=== PATIENT | male | born 1965 | race Caucasian/White ===

== ENCOUNTER 2022-12-21 18:11 | Emergency (ER) | payer BC, MEDICAID, OTHER ==
[~2022-12-21] VITALS: Ht 198.1 cm; Wt 114.8 kg
[2022-12-21 18:24] VITALS: BP 154/84
[2022-12-21 19:29] LABS: CLARITY,URINE CLEAR (Clear); COLOR,URINE YELLOW (Yellow); GLUCOSE, URINE 100 mg/dl (Neg); KETONES,URINE NEGATIVE (Neg); LEUKOCYTE ESTERASE ,URINE NEGATIVE (Neg); NITRITES, URINE NEGATIVE (Neg); OCCULT BLOOD,URINE NEGATIVE (Neg); PROTEIN,URINE NEGATIVE (Neg); UROBILINOGEN,URINE 0.2 E.U/dL (0.2-1.0)
[2022-12-21 19:34] LABS: UA COLLECTION TYPE CLN CATCH MIDSTREAM
[2022-12-21] MEDS ORDERED: acetaminophen 325mg tablet PO ONE (22:20)
[2022-12-21] MEDS ORDERED: ketorolac trometh inj. 60 MG/2 ML VIAL IM ONE (22:20)
[2022-12-21] MEDS ORDERED: HYDROcodone/acetaminophen 10/325mg tab PO ONE (22:25)
[2022-12-21] MEDS ORDERED: orphenadrine citrate 60mg/2ml inj. IM ONE (22:25)
[2022-12-21] MEDS ORDERED: ondansetron 4mg rapidly disintigrating tab PO ONE (22:25)
[2022-12-21] MEDS ORDERED: cyclobenzaprine 10mg tablet PO ONE (22:30)
[2022-12-21 22:38] LABS: BASOPHILS # (AUTO) 0.1 X10'3 (0-0.2); BASOPHILS % (AUTO) 1.3 % (0-1); EOSINOPHILS # (AUTO) 0.5 X10'3 (0-0.9); EOSINOPHILS % (AUTO) 4.8 % (0-6); HEMATOCRIT 44.5 % (42.0-52.0); HEMOGLOBIN 15.6 g/dl (14.0-17.9); LYMPHOCYTES # (AUTO) 2.5 X10'3 (1.1-4.8); LYMPHOCYTES % (AUTO) 24.1 % (21-51); MEAN CORPUSCULAR HEMOGLOBIN 31.4 PG (27.0-31.0); MEAN CORPUSCULAR VOLUME 89.7 FL (78-98); MEAN PLATELET VOLUME 7.6 FL (7.4-10.4); MONOCYTES # (AUTO) 0.8 X10'3 (0-0.9); MONOCYTES % (AUTO) 7.5 % (2-12); NEUTROPHILS # (AUTO) 6.5 X10'3 (1.8-7.7); NEUTROPHILS % (AUTO) 62.3 % (42-75); PLATELET COUNT 254 X10'3 (140-440); RED BLOOD COUNT 4.96 X10'6 (4.70-6.10); RED CELL DISTRIBUTION WIDTH 13.2 % (11.5-14.5); WHITE BLOOD COUNT 10.4 X10'3 (4.5-11.0)
[2022-12-21 22:48] LABS: ALANINE AMINOTRANSFERASE 35 U/L (12-78); ALBUMIN 4.1 G/DL (3.4-5.0); ALBUMIN/GLOBULIN RATIO 1.2 (1.1-1.5); ALKALINE PHOSPHATASE 100 IU/L (46-116); ANION GAP 10 (8-16); ASPARTATE AMINO TRANSFERASE 16 U/L (10-37); BILIRUBIN,TOTAL 0.4 MG/DL (0.1-1.0); BLOOD UREA NITROGEN 14 MG/DL (7-18); BUN/CREATININE RATIO 15.2 (10.0-20.0); CALCIUM 9.5 MG/DL (8.5-10.1); CHLORIDE 104 MMOL/L (99-107); CREATININE 0.92 MG/DL (0.60-1.10); GLUCOSE 185 MG/DL (70-104); POTASSIUM 4.2 MMOL/L (3.5-5.1); SODIUM 138 MMOL/L (135-145); TOTAL CARBON DIOXIDE 24.5 MMOL/L (24-32); TOTAL PROTEIN 7.6 G/DL (6.4-8.2); eGFR 85 ML/MIN
[2022-12-21] MEDS ORDERED: HYDR-3965 PO (23:40)
[2022-12-21] MEDS ORDERED: CYCL-1 PO (23:40)
[2022-12-22] MEDS ORDERED: CYCL-1 PO ×2 (11:39→11:40)
[2022-12-22] MEDS ORDERED: HYDR-3965 PO ×3 (11:39→11:56)
== END 2022-12-21 23:47 | disposition home or self-care (01) ==
LOC: ER 18:12
DX: M54.59 Other low back pain (principal); G89.29 Other chronic pain; Z79.899 Other long term (current) drug therapy; Z79.1 Long term (current) use of non-steroidal anti-inflammatories (NSAID)
CPT/HCPCS: 36415; 80053; 81003; 85025; 96372; 99284; J1885

== ENCOUNTER 2025-05-18 09:50 | Emergency (ER) | payer BC ==
[~2025-05-18] VITALS: Ht 198.1 cm; Wt 123.1 kg
[~2025-05-18 09:50] MED LIST: CYCL-1 PO
[2025-05-18 10:07] VITALS: BP 137/85; PULSE 81; RESP 16; O2SAT 98
[2025-05-18] MEDS: LIDOcaine 1% W/epiNEPHrine 1:100,000 20ml vial IJ ONE (10:36)
--- NOTE | 2025-05-18 10:36 | Physician Documentation ---
History of Present Illness ~ Chief Complaint: Wound Stated Complaint: "PELVIC SKIN INFECTION" Time Seen by MD: 10:20 OK to notify your PCP?: Yes Primary Medical Doctor: OMEGA Source: patient Mode of Arrival: POV Exam Limitations: no limitations HPI 59-year-old male with diabetes who is here due to pain full red swollen area on his lower abdomen. He states he has been on antibiotics now for three days prescribed by his primary care provider Dr. Sheldon. He states the redness and area that has swollen has gotten larger in size. He also reports it has gotten more painful despite being on antibiotics. No fever, chills, drainage from area. States he has never had anything like this before. Tetanus within 5 years?: Yes Medication Reconciliation Allergies: Coded Allergies: No Known Allergies (Unverified , 12/21/22) Scheduled Cyclobenzaprine* (Cyclobenzaprine*), 1 TAB PO HS Past Medical History Past Medical History: Diabetes, Chronic Back Pain Past Surgical History: orthopedic surgeries Alcohol Use: None Drug Use: none Review of Systems All Other Systems at this time: Reviewed and Negative Physical Exam Vital Signs: Temperature: 97.6, Source: Oral, Heart Rate: 81, Respiratory Rate: 16, BP: 137/85, Pulse Oximetry: 98, Weight: 123.100 Oxygen Flow Rate: 0 Physical Exam General Appearance: Alert, WD/WN. NAD. HEENT: NCAT, PERRL, EOMI. Neck: Supple, trachea midline. Cardiovascular: RRR. No m/r/g. Lungs: Breathing unlabored Extremities: Normal inspection. No edema. Skin: Warm/dry, normal color. At lower abdomen there is an area of erythema that is indurated with ttp measuring 5 cm in diameter. In the center of the area of erythema and induration there is area of fluctuance measuring about a 1cm. No drainage from area. Neurological: Alert and oriented x4, normal gait. Psychiatric: Affect congruent with mood. Procedures I & D Procedure : Site: Abdomen Anesthesia: Lidocaine w/ Epi Volume Anesthetic (mls): 6 Blade Size: 11 Incision: pus drained, blood drained Tolerated Procedure Well?: yes, no complications Progress Results/Orders Results/Orders Orders - KATHY DORAN Cult (Aer) Routine C&S+Gram St (05/18/25 10:29) Lido 1% W/Epi 1:100,000 Vial (05/18/25 10:30) Vital Signs 05/18/25 10:07 Temp 97.6 Pulse 81 Resp 16 B/P (MAP) 137/85 Pulse Ox 98 O2 Flow Rate 0 Medical Decision Making Differential Dx:Considerations: Include: Abscess, Cellulitis, Dressing change, Healing wound Departure Time of Disposition: 10:34 Disposition: 01 HOME / SELF CARE / HOMELESS Impression: Primary Impression: Abscess Condition: Stable Discharge Instructions: Skin Abscess Additional Instructions: CONTINUE ANTIBIOTICS PRESCRIBED BY YOUR PCP, THE ANTIBIOTICS SHOULD BE MORE EFFECTIVE NOW THAT ABSCESS IS DRAINED IF INCREASING SWELLING, PAIN, REDNESS, FEVER OR ANY OTHER CONCERNING SYMPTOMS RETURN TO ER Referrals: NO PRIMARY CARE PROVIDER (PCP) Education Educated: Patient Educated regarding: diagnosis, treatment, need for follow up Signature Scribe Signature: Tim Attestation: KATHY WILLARD May 18, 2025 10:36
[2025-05-18 11:08] VITALS: TEMP 97.6
== END 2025-05-18 11:10 | disposition home or self-care (01) ==
LOC: ER 09:51
DX: L02.211 Cutaneous abscess of abdominal wall (principal); E11.9 Type 2 diabetes mellitus without complications; Z79.899 Other long term (current) drug therapy
CPT/HCPCS: 10060; 99282; A6407; A6258